=== PATIENT | female | born 2000 | race Caucasian/White ===

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

== ENCOUNTER 2020-03-09 19:23 | Emergency (ER) | payer MEDICAID ==
--- NOTE | 2020-03-09 20:36 | EDM.PDOCBH ---
ED HPI GENERAL MEDICAL PROBLEM - General Chief Complaint: Behavioral/Psych Stated Complaint: EVAL Time Seen by Provider: 03/09/20 20:30 Source of Information: Reports: Patient, RN Notes Reviewed History Limitations: Reports: No Limitations - History of Present Illness INITIAL COMMENTS - FREE TEXT/NARRATIVE: 19-year-old female presents emergency department today complaint of wanting to harm her self, she does have a history of depression she still feels her medications are not working she thinks about harming herself she does not have a specific plan at this time does want treatment and is willing to go to inpatient treatment if that is an option - Related Data Allergies Allergy/AdvReac Type Severity Reaction Status Date / Time fernandez Allergy Anaphylactic Verified 03/09/20 20:11 Shock tree nut Allergy Anaphylactic Verified 03/09/20 20:11 Shock environmental Allergy Other Uncoded 03/09/20 20:11 Home Meds: Home Meds Albuterol [Ventolin HFA] 2 puff IH ASDIRECTED PRN 02/19/18 [History] Amitriptyline [Elavil] 10 mg PO BEDTIME 02/19/18 [History] Promethazine [Phenergan] 25 mg PO ASDIRECTED PRN 02/19/18 [History] DULoxetine [Cymbalta] 60 mg PO DAILY 07/19/19 [History] Past Medical History HEENT History: Reports: Sinusitis Cardiovascular History: Reports: Other (See Below) Other Cardiovascular History: palpitations Respiratory History: Reports: Asthma, Pneumonia, Recurrent Gastrointestinal History: Reports: Gastritis 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 Musculoskeletal History: Reports: Fracture Other Musculoskeletal History: fracture both wrist HX Neurological History: Reports: Concussion, Migraines Psychiatric History: Reports: Anxiety, Depression, Suicidal Ideation Dermatologic History: Reports: Psoriasis - Infectious Disease History Infectious Disease History: Reports: None - Past Surgical History HEENT Surgical History: Reports: Oral Surgery Cardiovascular Surgical History: Reports: None Respiratory Surgical History: Reports: None GI Surgical History: Reports: None Neurological Surgical History: Reports: None Musculoskeletal Surgical History: Reports: Other (See Below) Other Musculoskeletal Surgeries/Procedures:: right knee surgery Dermatological Surgical History: Reports: None Social & Family History - Tobacco Use Tobacco Use Status *Q: Never Tobacco User - Caffeine Use Caffeine Use: Reports: Coffee - Recreational Drug Use Recreational Drug Use: No ED ROS GENERAL - Review of Systems Review Of Systems: See Below Constitutional: Reports: No Symptoms HEENT: Reports: No Symptoms Respiratory: Reports: No Symptoms Cardiovascular: Reports: No Symptoms GI/Abdominal: Reports: No Symptoms Psychiatric: Reports: Depression, Suicidal Ideation. Denies: Hallucinations, Homicidal Ideation ED EXAM, BEHAVIORAL HEALTH - Physical Exam Exam: See Below Text/Narrative:: Orientated to person place and time, appropriately dressed, well groomed, memory to recent and remote events intact, good attention and concentration, speech is of adequate rate tone and volume is soft, good fund of knowledge, language is appropriate, Mood and affect are depressed, becomes tearful during interview, no pressured thoughts, positive for suicidal ideation, denies homicidal ideation, no hallucinations visual or auditory, poor judgment, poor insight Exam Limited By: No Limitations General Appearance: Alert, WD/WN, No Apparent Distress Respiratory/Chest: No Respiratory Distress, Lungs Clear, Normal Breath Sounds, No Accessory Muscle Use, Chest Non-Tender Cardiovascular: Regular Rate, Rhythm, No Murmur GI/Abdominal: Soft, Non-Tender COURSE, BEHAVIORAL HEALTH COMP - Course Vital Signs: Last Vital Signs Temp 98.1 F 03/09/20 20:08 Pulse 79 03/09/20 23:50 Resp 16 03/09/20 23:50 BP 108/71 03/09/20 23:50 Pulse Ox 97 03/09/20 23:50 Orders, Labs, Meds: Laboratory Tests 03/09/20 03/09/20 03/09/20 Range/Units 20:24 20:25 20:48 WBC 7.1 (4.5-11.0) K/uL RBC 5.29 (3.30-5.50) M/uL Hgb 15.1 H (12.0-15.0) g/dL Hct 45.1 (36.0-48.0) % MCV 85 (80-98) fL MCH 29 (27-31) pg MCHC 34 (32-36) % Plt Count 281 (150-400) K/uL Neut % (Auto) 78 H (36-66) % Lymph % (Auto) 14 L (24-44) % Collier % (Auto) 7 H (2-6) % Eos % (Auto) 0 L (2-4) % Baso % (Auto) 0 (0-1) % Sodium (140-148) mmol/L Potassium (3.6-5.2) mmol/L Chloride (100-108) mmol/L Carbon Dioxide (21-32) mmol/L Anion Gap (5.0-14.0) mmol/L BUN (7-18) mg/dL Creatinine (0.6-1.0) mg/dL Est Cr Clr Drug Dosing mL/min Estimated GFR (MDRD) (>60) Glucose (74-106) mg/dL Calcium (8.5-10.1) mg/dL Total Bilirubin (0.2-1.0) mg/dL AST (15-37) U/L ALT (12-78) U/L Alkaline Phosphatase (46-116) U/L Total Protein (6.4-8.2) g/dL Albumin (3.4-5.0) g/dL Globulin (2.3-3.5) g/dL Albumin/Globulin Ratio (1.2-2.2) TSH, Ultra Sensitive (0.358-3.740) uIU/mL Urine Color Yellow (YELLOW) Urine Appearance Turbid A (CLEAR) Urine pH 7.5 (5.0-8.0) Ur Specific Og[place] 1.020 (1.008-1.030) Urine Protein Negative (NEGATIVE) mg/dL Urine Glucose (UA) Negative (NEGATIVE) mg/dL Urine Ketones Negative (NEGATIVE) mg/dL Urine Occult Blood Negative (NEGATIVE) Urine Nitrite Negative (NEGATIVE) Urine Bilirubin Negative (NEGATIVE) Urine Urobilinogen 0.2 (0.2-1.0) EU/dL Ur Leukocyte Esterase Negative (NEGATIVE) Urine RBC 0-5 (0-5) Urine WBC 0-5 (0-5) Ur Epithelial Cells Rare Amorphous Sediment Many Urine Bacteria Many Urine Mucus Not seen Urine Opiates Screen Negative (NEGATIVE) Ur Oxycodone Screen Negative (NEGATIVE) Urine Methadone Screen Negative (NEGATIVE) Ur Propoxyphene Screen Negative (NEGATIVE) Ur Barbiturates Screen Negative (NEGATIVE) Ur Tricyclics Screen Presumptive positive H (NEGATIVE) Ur Phencyclidine Scrn Negative (NEGATIVE) Ur Amphetamine Screen Negative (NEGATIVE) U Methamphetamines Scrn Negative (NEGATIVE) Urine MDMA Screen Negative (NEGATIVE) U Benzodiazepines Scrn Negative (NEGATIVE) U Cocaine Metab Screen Negative (NEGATIVE) U Marijuana (THC) Screen Negative (NEGATIVE) 02/01/21 Range/Units 20:48 WBC (4.5-11.0) K/uL RBC (3.30-5.50) M/uL Hgb (12.0-15.0) g/dL Hct (36.0-48.0) % MCV (80-98) fL MCH (27-31) pg MCHC (32-36) % Plt Count (150-400) K/uL Neut % (Auto) (36-66) % Lymph % (Auto) (24-44) % Collier % (Auto) (2-6) % Eos % (Auto) (2-4) % Baso % (Auto) (0-1) % Sodium 142 (140-148) mmol/L Potassium 4.0 (3.6-5.2) mmol/L Chloride 103 (100-108) mmol/L Carbon Dioxide 27 (21-32) mmol/L Anion Gap 11.6 (5.0-14.0) mmol/L BUN 9 (7-18) mg/dL Creatinine 0.7 (0.6-1.0) mg/dL Est Cr Clr Drug Dosing 111.62 mL/min Estimated GFR (MDRD) > 60 (>60) Glucose 94 (74-106) mg/dL Calcium 9.2 (8.5-10.1) mg/dL Total Bilirubin 0.4 (0.2-1.0) mg/dL AST 36 (15-37) U/L ALT 54 (12-78) U/L Alkaline Phosphatase 82 (46-116) U/L Total Protein 7.2 (6.4-8.2) g/dL Albumin 4.0 (3.4-5.0) g/dL Globulin 3.2 (2.3-3.5) g/dL Albumin/Globulin Ratio 1.3 (1.2-2.2) TSH, Ultra Sensitive 1.256 (0.358-3.740) uIU/mL Urine Color (YELLOW) Urine Appearance (CLEAR) Urine pH (5.0-8.0) Ur Specific [place] (1.008-1.030) Urine Protein (NEGATIVE) mg/dL Urine Glucose (UA) (NEGATIVE) mg/dL Urine Ketones (NEGATIVE) mg/dL Urine Occult Blood (NEGATIVE) Urine Nitrite (NEGATIVE) Urine Bilirubin (NEGATIVE) Urine Urobilinogen (0.2-1.0) EU/dL Ur Leukocyte Esterase (NEGATIVE) Urine RBC (0-5) Urine WBC (0-5) Ur Epithelial Cells Amorphous Sediment Urine Bacteria Urine Mucus Urine Opiates Screen (NEGATIVE) Ur Oxycodone Screen (NEGATIVE) Urine Methadone Screen (NEGATIVE) Ur Propoxyphene Screen (NEGATIVE) Ur Barbiturates Screen (NEGATIVE) Ur Tricyclics Screen (NEGATIVE) Ur Phencyclidine Scrn (NEGATIVE) Ur Amphetamine Screen (NEGATIVE) U Methamphetamines Scrn (NEGATIVE) Urine MDMA Screen (NEGATIVE) U Benzodiazepines Scrn (NEGATIVE) U Cocaine Metab Screen (NEGATIVE) U Marijuana (THC) Screen (NEGATIVE) Departure - Departure Time of Disposition: 03:56 Disposition: DC/Tfer to Psych Hosp/Unit 65 Condition: Fair Clinical Impression: Suicidal ideation - Discharge Information Referrals: Bibi Santos PA-C [Primary Care Provider] - Forms: ED Department Discharge Sepsis Event Note (ED) - Evaluation Sepsis Screening Result: No Definite Risk - Focused Exam Vital Signs: Vital Signs Temp Pulse Resp BP Pulse Ox 03/09/20 23:50 79 16 108/71 97 03/09/20 20:08 98.1 F 51 L 16 145/90 H 96 - Assessment/Plan Plan: Assessment Acuity = acute Site and laterality = suicidal ideation Etiology = unknown Manifestations = none Location of injury = Home Lab values = CBC CMP urinalysis unremarkable urine drug screen positive for tricyclic's probably cross-reactivity from her medication Plan Did gain acceptance to [facility] Dr. Quintanilla kindly excepted at 340 she will be transported via psychiatric transport at 7 AM service becomes available This note was dictated using [employer] voice recognition software please call with any questions on syntax or grammar.
== END 2020-03-10 09:05 ==
LOC: JP.ED 19:23
DX: R45.851 Suicidal ideations (principal); J45.909 Unspecified asthma, uncomplicated; Z91.018 Allergy to other foods; Z91.048 Other nonmedicinal substance allergy status; Z79.899 Other long term (current) drug therapy
CPT/HCPCS: 36415; 80053; 80305-QW; 81001; 84443; 85025; 99285

== ENCOUNTER 2020-06-19 20:07 | Emergency (ER) | payer MEDICAID ==
--- NOTE | 2020-06-19 21:23 | EDM.PDOC ---
ED HPI GENERAL MEDICAL PROBLEM - General Chief Complaint: Respiratory Problem Stated Complaint: COVID SYMPTOMS/ALLERGY? Time Seen by Provider: 06/19/20 20:19 Source of Information: Reports: Patient History Limitations: Reports: No Limitations - History of Present Illness INITIAL COMMENTS - FREE TEXT/NARRATIVE: Nikolai is a 20-year-old female presenting to the ED with complaint of nasal congestion, sore throat, cough, and shortness of breath. She states that she feels like her lungs are filling up with fluid. She is concerned that she may have contracted pneumonia or bronchitis. She does suffer from seasonal allergies and has been taking her allergy medicine without any benefit. 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 She denies any fever although she does later state that she has had a low-grade fever on and off. She has had significant postnasal drip and nasal congestion. She denies any headache or body aches. She has had no nausea, vomiting, constipation, or diarrhea. Her appetite has been good. chest pain Pain Score (Numeric/FACES): 7 - Related Data Allergies Allergy/AdvReac Type Severity Reaction Status Date / Time fernandez Allergy Anaphylactic Verified 06/19/20 20:24 Shock tree nut Allergy Anaphylactic Verified 06/19/20 20:24 Shock environmental Allergy Other Uncoded 06/19/20 20:24 Home Meds: Home Meds Albuterol [Ventolin HFA] 2 puff IH ASDIRECTED PRN 02/19/18 [History] Amitriptyline [Elavil] 10 mg PO BEDTIME 02/19/18 [History] Promethazine [Phenergan] 25 mg PO ASDIRECTED PRN 02/19/18 [History] DULoxetine [Cymbalta] 60 mg PO BEDTIME 07/19/19 [History] EPINEPHrine [Epipen] 1 injection SUBCUT ASDIRECTED PRN 06/19/20 [History] Past Medical History HEENT History: Reports: Sinusitis Cardiovascular History: Reports: Other (See Below) Other Cardiovascular History: palpitations Respiratory History: Reports: Asthma, Pneumonia, Recurrent Gastrointestinal History: Reports: Gastritis 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 Musculoskeletal History: Reports: Fracture Other Musculoskeletal History: fracture both wrist HX Neurological History: Reports: Concussion, Migraines Psychiatric History: Reports: Anxiety, Depression, Suicidal Ideation Dermatologic History: Reports: Psoriasis - Infectious Disease History Infectious Disease History: Reports: None - Past Surgical History HEENT Surgical History: Reports: Oral Surgery Cardiovascular Surgical History: Reports: None Respiratory Surgical History: Reports: None GI Surgical History: Reports: None Neurological Surgical History: Reports: None Musculoskeletal Surgical History: Reports: Other (See Below) Other Musculoskeletal Surgeries/Procedures:: right knee surgery Dermatological Surgical History: Reports: None Social & Family History - Tobacco Use Tobacco Use Status *Q: Light Tobacco User Years of Tobacco use: 1 Packs/Tins Daily: 0.1 Tobacco Use Comment: Pt states she has only "smoked for a couple months and I usually only smoke 2-3 a week" - Caffeine Use Caffeine Use: Reports: Coffee - Recreational Drug Use Recreational Drug Use: Yes ED ROS GENERAL - Review of Systems Review Of Systems: See Below Constitutional: Reports: Fever (Low-grade), Chills HEENT: Reports: Ear Pain, Rhinitis, Throat Pain, Throat Swelling Respiratory: Reports: Pleuritic Chest Pain, Cough Cardiovascular: Reports: No Symptoms Endocrine: Reports: No Symptoms GI/Abdominal: Reports: No Symptoms : Reports: No Symptoms Musculoskeletal: Reports: No Symptoms Skin: Reports: No Symptoms Neurological: Reports: No Symptoms Psychiatric: Reports: No Symptoms Hematologic/Lymphatic: Reports: No Symptoms Immunologic: Reports: Seasonal Allergy ED EXAM, GENERAL - Physical Exam Exam: See Below Exam Limited By: No Limitations General Appearance: Alert, No Apparent Distress Eye Exam: Bilateral Eye: EOMI, PERRL Ears: Normal External Exam, Normal Canal, Hearing Grossly Normal, Normal TMs, Other (Bilateral serous effusions) Nose: Nasal Swelling, Clear Rhinorrhea Throat/Mouth: Normal Inspection, Normal Lips, Normal Oropharynx, Normal Voice, N o Airway Compromise Head: Atraumatic, Normocephalic Neck: Normal Inspection, Supple, Non-Tender, Full Range of Motion. No: Lymphadenopathy (R), Lymphadenopathy (L) Respiratory/Chest: No Respiratory Distress, Lungs Clear, Normal Breath Sounds, No Accessory Muscle Use, Chest Non-Tender Cardiovascular: Normal Peripheral Pulses, Regular Rate, Rhythm, No Murmur GI/Abdominal: Normal Bowel Sounds, Soft, Non-Tender Back Exam: Normal Inspection Extremities: Normal Inspection Neurological: Alert, Oriented, Normal Cognition, No Motor/Sensory Deficits Psychiatric: Tearful Skin Exam: Warm, Dry, Intact Lymphatic: No Adenopathy Course - Vital Signs Last Recorded V/S: Last Vital Signs Temp 35.7 C L 06/19/20 20:28 Pulse 90 06/19/20 20:28 Resp 16 06/19/20 20:28 BP 132/79 06/19/20 20:28 Pulse Ox 100 06/19/20 20:28 - Orders/Labs/Meds Orders: Active Orders 24 hr Category Date Time Status Chest 1V Frontal [CR] Stat Exams 06/19/20 20:19 Taken Isolation [COMM] Stat Oth 06/19/20 20:21 Ordered Labs: Laboratory Tests 06/19/20 06/19/20 06/19/20 Range/Units 20:33 20:33 20:33 WBC 7.8 (4.5-11.0) K/uL RBC 5.26 (3.30-5.50) M/uL Hgb 15.0 (12.0-15.0) g/dL Hct 44.9 (36.0-48.0) % MCV 85 (80-98) fL MCH 29 (27-31) pg MCHC 33 (32-36) % Plt Count 268 (150-400) K/uL Neut % (Auto) 74 H (36-66) % Lymph % (Auto) 17 L (24-44) % Lee % (Auto) 7 H (2-6) % Eos % (Auto) 2 (2-4) % Baso % (Auto) 0 (0-1) % D-Dimer, Quantitative 242.53 (0.0-500.0) ng/mL Sodium 141 (140-148) mmol/L Potassium 4.3 (3.6-5.2) mmol/L Chloride 103 (100-108) mmol/L Carbon Dioxide 28 (21-32) mmol/L Anion Gap 10.5 (5.0-14.0) mmol/L BUN 12 (7-18) mg/dL Creatinine 0.8 (0.6-1.0) mg/dL Est Cr Clr Drug Dosing 92.79 mL/min Estimated GFR (MDRD) > 60 (>60) Glucose 74 (74-106) mg/dL Calcium 9.0 (8.5-10.1) mg/dL Total Bilirubin 0.4 (0.2-1.0) mg/dL AST 20 (15-37) U/L ALT 24 (12-78) U/L Alkaline Phosphatase 83 (46-116) U/L C-Reactive Protein 0.16 (0.0-0.3) mg/dL Total Protein 7.1 (6.4-8.2) g/dL Albumin 3.8 (3.4-5.0) g/dL Globulin 3.3 (2.3-3.5) g/dL Albumin/Globulin Ratio 1.2 (1.2-2.2) SARS CoV-2 RNA Rapid JONAS 06/19/20 Range/Units 20:47 WBC (4.5-11.0) K/uL RBC (3.30-5.50) M/uL Hgb (12.0-15.0) g/dL Hct (36.0-48.0) % MCV (80-98) fL MCH (27-31) pg MCHC (32-36) % Plt Count (150-400) K/uL Neut % (Auto) (36-66) % Lymph % (Auto) (24-44) % Lee % (Auto) (2-6) % Eos % (Auto) (2-4) % Baso % (Auto) (0-1) % D-Dimer, Quantitative (0.0-500.0) ng/mL Sodium (140-148) mmol/L Potassium (3.6-5.2) mmol/L Chloride (100-108) mmol/L Carbon Dioxide (21-32) mmol/L Anion Gap (5.0-14.0) mmol/L BUN (7-18) mg/dL Creatinine (0.6-1.0) mg/dL Est Cr Clr Drug Dosing mL/min Estimated GFR (MDRD) (>60) Glucose (74-106) mg/dL Calcium (8.5-10.1) mg/dL Total Bilirubin (0.2-1.0) mg/dL AST (15-37) U/L ALT (12-78) U/L Alkaline Phosphatase (46-116) U/L C-Reactive Protein (0.0-0.3) mg/dL Total Protein (6.4-8.2) g/dL Albumin (3.4-5.0) g/dL Globulin (2.3-3.5) g/dL Albumin/Globulin Ratio (1.2-2.2) SARS CoV-2 RNA Rapid JONAS Negative - Re-Assessments/Exams Free Text/Narrative Re-Assessment/Exam: 06/19/20 21:28 on examination, it appears that allergic rhinitis is the primary diagnosis here. The patient has significant turbinate edema with mild erythema and copious clear rhinorrhea. She does have significant postnasal drip and mild erythema the retropharynx. Lungs are clear. Her labs are unremarkable including CBC, comprehensive metabolic profile, CRP and D-dimer. Her Covid is negative. Chest x-ray is obtained and shows no acute abnormalities. This is likely seasonal allergies causing allergic rhinitis and significant postnasal drip causing sore throat. We will put her on a Medrol Dosepak to calm down the allergy flare and I have instructed her to slat pickler Flonase with 2 sprays in each nostril twice daily during the allergy season. At this time patient suitable for discharge home. She is in agreement with this plan. Indications return to the ED were discussed. Departure - Departure Time of Disposition: 21:21 Disposition: Home, Self-Care 01 Clinical Impression: Seasonal allergies Allergic rhinitis Qualifiers: Allergic rhinitis trigger: pollen Allergic rhinitis seasonality: seasonal Qualified Code(s): J30.1 - Allergic rhinitis due to pollen - Discharge Information Instructions: Allergic Rhinitis, Adult, [id number] Referrals: Bibi Santos PA-C [Primary Care Provider] - Forms: ED Department Discharge Care Plan Goals: I am putting you on a Medrol Dosepak which is a steroid pack to reduce your inflammatory response to your allergies. I also recommend stopping at [facility] and picking up Flonase which is available [id number]. I recommend 2 sprays in each nostril twice daily for the remainder of the allergy season. This will help reduce the swelling and nasal drainage causing your sore throat and cough. Your chest x-ray and labs were unremarkable for any significant abnormalities. Certainly there is no evidence for bronchitis or pneumonia. Sepsis Event Note (ED) - Evaluation Sepsis Screening Result: No Definite Risk - Focused Exam Vital Signs: Vital Signs Temp Pulse Resp BP Pulse Ox 06/19/20 20:28 35.7 C L 90 16 132/79 100 06/19/20 20:17 35.7 C L 90 16 132/79 100 - My Orders Last 24 Hours: My Active Orders 06/19/20 20:19 Chest 1V Frontal [CR] Stat 06/19/20 20:21 Isolation [COMM] Stat - Assessment/Plan Last 24 Hours: My Active Orders 06/19/20 20:19 Chest 1V Frontal [CR] Stat 06/19/20 20:21 Isolation [COMM] Stat
--- NOTE | 2020-06-22 10:48 | CRLCR ---
INDICATION: Dyspnea TECHNIQUE: Chest 1 view COMPARISON: None FINDINGS: Cardiovascular and mediastinum: Heart size and vasculature are normal in caliber and appearance. Lungs and pleural spaces: Lungs are clear. No sign of infiltrate or mass. No sign of pleural effusion. No pneumothorax. Bones and soft tissues: No significant findings. IMPRESSION: No acute or significant findings. Dictated by Migel Boston MD @ 06/22/2020 10:46:[address] Migel Boston @ Jun 22 2020 10:46AM
== END 2020-06-19 21:34 | disposition home or self-care (01) ==
LOC: JP.ED 20:07
DX: J30.2 Other seasonal allergic rhinitis (principal); Z91.048 Other nonmedicinal substance allergy status; Z72.0 Tobacco use; Z20.822 Contact with and (suspected) exposure to COVID-19
CPT/HCPCS: 36415; 71045; 80053; 85025; 85379; 86140; 99283; 99283-25; U0002

== ENCOUNTER 2020-10-06 21:51 | Emergency (ER) | payer MEDICAID ==
--- NOTE | 2020-10-06 23:12 | EDM.PDOC ---
ED HPI GENERAL MEDICAL PROBLEM - General Chief Complaint: Allergic Reaction Stated Complaint: ALLERGIC REACTION - Time Seen by Provider: 10/06/20 23:00 Source of Information: Reports: Patient History Limitations: Reports: No Limitations - History of Present Illness INITIAL COMMENTS - FREE TEXT/NARRATIVE: 20-year-old female with hayfever that has been very active for the past 3 weeks, tonight felt like her throat was closing and she was having difficulty breathing so she gave herself a dose of her EpiPen and came to the emergency room. Still some mild nasal congestion but no shortness of breath or other symptoms. Breathing is shallow nonlabored. She has responded well to steroids in the past when she has significant flareups. Onset: Gradual Duration: Week(s): (Symptoms for 3 weeks) Improves with: Reports: Other (EpiPen did seem to improve her symptoms) Associated Symptoms: Reports: Shortness of Breath, Other (Nasal congestion, throat swelling). Denies: Fever/Chills, Headaches, Nausea/Vomiting - Related Data Allergies Allergy/AdvReac Type Severity Reaction Status Date / Time fernandez Allergy Anaphylactic Verified 10/06/20 22:59 Shock tree nut Allergy Anaphylactic Verified 10/06/20 22:59 Shock environmental Allergy Other Uncoded 06/19/20 20:24 Home Meds: Home Meds Albuterol [Ventolin HFA] 2 puff IH ASDIRECTED PRN 02/19/18 [History] Amitriptyline [Elavil] 10 mg PO BEDTIME 02/19/18 [History] Promethazine [Phenergan] 25 mg PO ASDIRECTED PRN 02/19/18 [History] DULoxetine [Cymbalta] 60 mg PO BEDTIME 07/19/19 [History] EPINEPHrine [Epipen] 1 injection SUBCUT ASDIRECTED PRN 06/19/20 [History] Past Medical History HEENT History: Reports: Allergic Rhinitis, Sinusitis Cardiovascular History: Reports: Other (See Below) Other Cardiovascular History: palpitations Respiratory History: Reports: Asthma, Pneumonia, Recurrent Gastrointestinal History: Reports: Gastritis 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 Musculoskeletal History: Reports: Fracture Other Musculoskeletal History: fracture both wrist HX Neurological History: Reports: Concussion, Migraines Psychiatric History: Reports: Anxiety, Depression, Suicidal Ideation Dermatologic History: Reports: Psoriasis - Infectious Disease History Infectious Disease History: Reports: None - Past Surgical History HEENT Surgical History: Reports: Oral Surgery Cardiovascular Surgical History: Reports: None Respiratory Surgical History: Reports: None GI Surgical History: Reports: None Neurological Surgical History: Reports: None Musculoskeletal Surgical History: Reports: Other (See Below) Other Musculoskeletal Surgeries/Procedures:: right knee surgery Dermatological Surgical History: Reports: None Social & Family History - Tobacco Use Tobacco Use Status *Q: Light Tobacco User Years of Tobacco use: 1 Packs/Tins Daily: 0.5 - Caffeine Use Caffeine Use: Reports: Coffee - Recreational Drug Use Recreational Drug Use: No ED ROS ALLERGIC REACTION - Review of Systems Review Of Systems: See Below Constitutional: Reports: Malaise. Denies: Fever, Chills HEENT: Reports: Rhinitis, Other (Throat swelling or tightness, chronic recurring sinus congestion and sinusitis) Respiratory: Reports: Shortness of Breath, Wheezing, Cough Cardiovascular: Denies: Chest Pain GI/Abdominal: Denies: Abdominal Pain, Nausea, Vomiting Skin: Denies: Rash Neurological: Denies: Headache ED EXAM GENERAL NO PERIP PULSE - Physical Exam Exam: See Below Exam Limited By: No Limitations General Appearance: Alert, No Apparent Distress Eye Exam: Bilateral Eye: Normal Inspection Ears: Normal TMs Throat/Mouth: Normal Inspection Head: Atraumatic Respiratory/Chest: No Respiratory Distress, Lungs Clear Cardiovascular: Regular Rate, Rhythm Extremities: Normal Inspection Neurological: Alert, Oriented, No Motor/Sensory Deficits Psychiatric: Normal Affect, Normal Mood Skin Exam: Warm, Dry. No: Rash Course - Vital Signs Last Recorded V/S: Last Vital Signs Temp 97.4 F 10/06/20 23:00 Pulse 94 10/06/20 23:00 Resp 14 10/06/20 23:00 BP 121/87 10/06/20 23:00 Pulse Ox 100 10/06/20 23:00 - Re-Assessments/Exams Free Text/Narrative Re-Assessment/Exam: 10/07/20 04:37 Patient was placed on Medrol Dosepak will take as directed. She can return if she needs to repeat her EpiPen or feels like her throat is closing or she has difficulty breathing. Departure - Departure Time of Disposition: 23:18 Disposition: Home, Self-Care 01 Clinical Impression: Multiple environmental allergies - Discharge Information Instructions: Allergies, Adult, [id number] Referrals: Bibi Santos PA-C [Primary Care Provider] - Forms: ED Department Discharge Care Plan Goals: Continue any current medications and take Medrol Dosepak as prescribed. If symptoms are worsening to the point where you need an EpiPen, return for reevaluation. Sepsis Event Note (ED) - Evaluation Sepsis Screening Result: No Definite Risk - Focused Exam Vital Signs: Vital Signs Temp Pulse Resp BP Pulse Ox 10/06/20 23:00 97.4 F 94 14 121/87 100 10/06/20 22:55 97.4 F 94 14 121/87 100
== END 2020-10-06 23:18 | disposition home or self-care (01) ==
LOC: JP.ED 21:51
DX: T78.40XA Allergy, unspecified, initial encounter (principal); Z91.010 Allergy to peanuts; Z91.09 Other allergy status, other than to drugs and biological substances; Z72.0 Tobacco use; J30.2 Other seasonal allergic rhinitis
CPT/HCPCS: 99283